=== PATIENT | female | born 1980 | race African-American/Black ===

== ENCOUNTER 2017-02-11 22:12 | Emergency (ER) | payer OTHER ==
[2017-02-11 23:12] LABS: PLATELET COUNT 229 x10^3mcL (130-400); RED CELL DISTRIBUTION WIDTH 14.1 % (11.5-14.5)
[2017-02-11 23:23] LABS: CALCIUM 9.1 mg/dL (8.5-10.1); CHLORIDE SERUM 105 mmol/L (98-107); CREATININE SERUM 0.9 mg/dL (0.6-1.0); GFR1 > 60 mL/min; GLUCOSE SERUM 107 mg/dL (74-106); SODIUM SERUM 141 mmol/L (136-145)
[2017-02-11 23:26] LABS: microscopic required? NO
[2017-02-11 23:27] LABS: ALBUMIN 4.2 g/dL (3.4-5.0); ALKALINE PHOSPHATASE 72 U/L (46-116); ALT/SGPT 24 U/L (14-59); AMYLASE 53 U/L (25-115); AST/SGOT 11 U/L (15-37); BILIRUBIN TOTAL 0.45 mg/dL (0.20-1.00); LIPASE 243 IU/L (73-393); TOTAL PROTEIN, SERUM 7.6 g/dL (6.4-8.2)
[2017-02-11 23:32] LABS: urine erythrocyte NEGATIVE (NEGATIVE)
[2017-02-12 03:54] VITALS: BP 129/88
== END 2017-02-12 03:50 | disposition home or self-care (01) ==
LOC: ED 22:12
PROVIDERS: Emergency Medicine
DX: N83.201 Unspecified ovarian cyst, right side (principal); G43.809 Other migraine, not intractable, without status migrainosus; Z90.710 Acquired absence of both cervix and uterus; Z90.721 Acquired absence of ovaries, unilateral
CPT/HCPCS: J2270; J3010; Q0162

== ENCOUNTER 2017-02-17 19:19 | Emergency (ER) | payer OTHER ==
[2017-02-17 21:29] VITALS: BP 131/88
== END 2017-02-17 21:29 | disposition home or self-care (01) ==
LOC: ED 19:19
DX: G43.909 Migraine, unspecified, not intractable, without status migrainosus (principal); Z88.5 Allergy status to narcotic agent; Z88.8 Allergy status to other drugs, medicaments and biological substances
CPT/HCPCS: J0780; J1200; J1885; J7030

== ENCOUNTER 2017-05-16 14:11 | Emergency (ER) | payer OTHER ==
[~2017-05-16] VITALS: Ht 160 cm; Wt 51.2 kg
[2017-05-16 14:54] LABS: CALCIUM 9.1 mg/dL (8.5-10.1); CARBON DIOXIDE 20.7 mmol/L (21-32); CHLORIDE SERUM 108 mmol/L (98-107); GFR1 > 60 mL/min; GLUCOSE SERUM 81 mg/dL (74-106); POTASSIUM SERUM 3.4 mmol/L (3.5-5.1); SODIUM SERUM 146 mmol/L (136-145)
[2017-05-16 14:55] LABS: BASOPHIL % 0.6 % (0-2); PLATELET COUNT 175 x10^3mcL (130-400); RED CELL DISTRIBUTION WIDTH 13.9 % (11.5-14.5)
[2017-05-16 15:21] LABS: ALBUMIN 4.4 g/dL (3.4-5.0); ALKALINE PHOSPHATASE 60 U/L (46-116); ALT/SGPT 19 U/L (14-59); AST/SGOT 14 U/L (15-37); BILIRUBIN TOTAL 1.76 mg/dL (0.20-1.00); LIPASE 110 IU/L (73-393); TOTAL PROTEIN, SERUM 7.8 g/dL (6.4-8.2)
[2017-05-16 16:04] VITALS: BP 134/85
== END 2017-05-16 16:04 | disposition home or self-care (01) ==
LOC: ED 14:11
PROVIDERS: Emergency Medicine
DX: K29.00 Acute gastritis without bleeding (principal); E86.0 Dehydration; F17.200 Nicotine dependence, unspecified, uncomplicated; G43.909 Migraine, unspecified, not intractable, without status migrainosus; Z90.89 Acquired absence of other organs; Z79.899 Other long term (current) drug therapy; Z88.5 Allergy status to narcotic agent; Z88.8 Allergy status to other drugs, medicaments and biological substances
CPT/HCPCS: J2060; J2405; J3490; J7030; Q0092

== ENCOUNTER 2019-10-15 03:13 | Inpatient (IN) | payer OTHER, MEDICAID ==
[~2019-10-15] VITALS: Ht 160 cm; Wt 59.1 kg
[2019-10-15 03:20] VITALS: Ht 160 cm; Wt 59.1 kg
[2019-10-15 04:22] LABS: CALCIUM 8.7 mg/dL (8.5-10.1); CARBON DIOXIDE 25.4 mmol/L (21-32); CHLORIDE SERUM 105 mmol/L (98-107); GFR1 > 60 mL/min; GLUCOSE SERUM 91 mg/dL (74-106); POTASSIUM SERUM 4.8 mmol/L (3.5-5.1); SODIUM SERUM 140 mmol/L (136-145)
[2019-10-15 04:27] LABS: ALKALINE PHOSPHATASE 94 U/L (46-116); ALT/SGPT 18 U/L (14-59); AST/SGOT 28 U/L (15-37); BILIRUBIN TOTAL 0.8 mg/dL (0.20-1.00)
[2019-10-15 04:28] LABS: TOTAL PROTEIN, SERUM 8.3 g/dL (6.4-8.2)
[2019-10-15 04:31] LABS: BASOPHIL % 0.8 % (0-2); PLATELET COUNT 272 x10^3mcL (130-400); RED CELL DISTRIBUTION WIDTH 13.3 % (11.5-14.5)
[2019-10-15] MEDS ORDERED: PLA75 (06:14)
[2019-10-15] MEDS ORDERED: ASPIR 8181 MG (06:17)
[2019-10-15] MEDS ORDERED: SIMVASTATIN10 M1 (06:17)
[2019-10-15 06:48] LABS: microscopic required? NO
[2019-10-15 06:49] VITALS: BP 141/96
[2019-10-15 07:43] VITALS: BP 141/96
[2019-10-15 07:53] LABS: UA SPECIFIC GRAVITY >=1.030 (1.005-1.035); urine erythrocyte NEGATIVE (NEGATIVE)
[2019-10-15 08:16] LABS: AMPHETAMINE QUAL UR NONE DETECTED (See below)
[2019-10-15 09:02] VITALS: BP 130/88
[2019-10-15 17:19] VITALS: BP 134/83
[2019-10-15 20:58] VITALS: BP 101/65
[2019-10-16 05:28] VITALS: BP 117/77
[2019-10-16 06:11] LABS: BASOPHIL % 0.7 % (0-2); PLATELET COUNT 215 x10^3mcL (130-400); RED CELL DISTRIBUTION WIDTH 13.3 % (11.5-14.5)
[2019-10-16 06:39] LABS: CALCIUM 7.8 mg/dL (8.5-10.1); CARBON DIOXIDE 25.3 mmol/L (21-32); CHLORIDE SERUM 108 mmol/L (98-107); GFR1 > 60 mL/min; GLUCOSE SERUM 83 mg/dL (74-106); POTASSIUM SERUM 3.9 mmol/L (3.5-5.1); SODIUM SERUM 142 mmol/L (136-145)
[2019-10-16 07:55] VITALS: BP 110/78
[2019-10-16 08:00] VITALS: BP 132/76
[2019-10-16 16:47] VITALS: BP 131/84
[2019-10-16 20:30] VITALS: BP 117/78
[2019-10-17 05:25] VITALS: BP 104/66
[2019-10-17 06:35] LABS: BASOPHIL % 0.6 % (0-2); PLATELET COUNT 204 x10^3mcL (130-400); RED CELL DISTRIBUTION WIDTH 13.3 % (11.5-14.5)
[2019-10-17 06:58] LABS: CALCIUM 7.6 mg/dL (8.5-10.1); CARBON DIOXIDE 21.9 mmol/L (21-32); CHLORIDE SERUM 108 mmol/L (98-107); GFR1 > 60 mL/min; GLUCOSE SERUM 88 mg/dL (74-106); POTASSIUM SERUM 3.7 mmol/L (3.5-5.1); SODIUM SERUM 141 mmol/L (136-145)
[2019-10-17 07:53] VITALS: BP 117/74
[2019-10-17 16:06] VITALS: BP 123/84
[2019-10-17 20:10] VITALS: BP 115/62
[2019-10-18 05:07] VITALS: BP 96/54
[2019-10-18 07:38] LABS: BASOPHIL % 0.5 % (0-2); PLATELET COUNT 194 x10^3mcL (130-400); RED CELL DISTRIBUTION WIDTH 13.2 % (11.5-14.5)
[2019-10-18 07:40] VITALS: BP 125/84
[2019-10-18 08:21] LABS: CALCIUM 8.1 mg/dL (8.5-10.1); CARBON DIOXIDE 24.5 mmol/L (21-32); CHLORIDE SERUM 105 mmol/L (98-107); CREATININE SERUM 0.7 mg/dL (0.6-1.0); GFR1 > 60 mL/min; GLUCOSE SERUM 91 mg/dL (74-106); POTASSIUM SERUM 3.4 mmol/L (3.5-5.1); SODIUM SERUM 139 mmol/L (136-145)
[2019-10-18] MEDS ORDERED: CIPRO500 MG PO (11:51)
[2019-10-18] MEDS ORDERED: FLO4 PO (11:51)
[2019-10-18 12:10] VITALS: BP 125/84
== END 2019-10-18 12:50 | disposition home or self-care (01) | DRG 690 ==
LOC: ED 03:13 → MU 05:29
PROVIDERS: Emergency Medicine; General Practice; ADMIT Internal Medicine
DX: N10 Acute pyelonephritis (principal); G43.909 Migraine, unspecified, not intractable, without status migrainosus; N20.0 Calculus of kidney; Z79.82 Long term (current) use of aspirin; Z79.01 Long term (current) use of anticoagulants; Z86.73 Personal history of transient ischemic attack (TIA), and cerebral infarction without residual deficits; Z88.8 Allergy status to other drugs, medicaments and biological substances; Z88.5 Allergy status to narcotic agent; Z88.6 Allergy status to analgesic agent; Z90.710 Acquired absence of both cervix and uterus; Z90.711 Acquired absence of uterus with remaining cervical stump
CPT/HCPCS: G0378; J0696; J1170; J1200; J1940; J2270; J2405; J2550; J7030; Q0163

== ENCOUNTER 2020-02-13 19:03 | Emergency (ER) | payer OTHER, MEDICAID ==
[~2020-02-13] VITALS: Ht 165.1 cm; Wt 73.9 kg
[~2020-02-13 19:03] MED LIST: ASPIR 8181 MG; CIPRO500 MG PO; FLO4 PO; PLA75; SIMVASTATIN10 M1
[2020-02-13 19:21] VITALS: Ht 165.1 cm; Wt 73.9 kg
[2020-02-13 20:49] LABS: BASOPHIL % 0.9 % (0-2); PLATELET COUNT 216 x10^3mcL (130-400); RED CELL DISTRIBUTION WIDTH 14.3 % (11.5-14.5)
[2020-02-13 20:58] LABS: CALCIUM 8.8 mg/dL (8.5-10.1); CARBON DIOXIDE 29.5 mmol/L (21-32); CHLORIDE SERUM 106 mmol/L (98-107); GFR1 > 60 mL/min; GLUCOSE SERUM 90 mg/dL (74-106); POTASSIUM SERUM 3.7 mmol/L (3.5-5.1); SODIUM SERUM 141 mmol/L (136-145)
[2020-02-13 21:03] LABS: ALBUMIN 3.5 g/dL (3.4-5.0); ALKALINE PHOSPHATASE 80 U/L (46-116); ALT/SGPT 17 U/L (14-59); AST/SGOT 12 U/L (15-37); BILIRUBIN TOTAL 0.3 mg/dL (0.20-1.00); TOTAL PROTEIN, SERUM 6.9 g/dL (6.4-8.2)
[2020-02-13 21:54] VITALS: BP 115/83
== END 2020-02-13 21:54 | disposition home or self-care (01) ==
LOC: ED 19:03
PROVIDERS: Emergency Medicine
DX: G43.909 Migraine, unspecified, not intractable, without status migrainosus (principal); R20.2 Paresthesia of skin; Z88.6 Allergy status to analgesic agent; Z88.8 Allergy status to other drugs, medicaments and biological substances; Z88.5 Allergy status to narcotic agent
CPT/HCPCS: J1200; J2270; J2405; J7030

== ENCOUNTER 2020-03-05 22:44 | Emergency (ER) | payer OTHER, MEDICAID ==
[~2020-03-05] VITALS: Ht 157.5 cm; Wt 61.7 kg
[2020-03-05 22:54] VITALS: Ht 157.5 cm; Wt 61.7 kg
[2020-03-06 00:13] LABS: CARBON DIOXIDE 25.6 mmol/L (21-32); CHLORIDE SERUM 104 mmol/L (98-107); GFR1 > 60 mL/min; GLUCOSE SERUM 89 mg/dL (74-106); POTASSIUM SERUM 3.8 mmol/L (3.5-5.1); SODIUM SERUM 141 mmol/L (136-145)
[2020-03-06 00:18] LABS: ALBUMIN 4.1 g/dL (3.4-5.0); ALKALINE PHOSPHATASE 98 U/L (46-116); ALT/SGPT 37 U/L (14-59); AST/SGOT 18 U/L (15-37); BILIRUBIN TOTAL 0.5 mg/dL (0.20-1.00)
[2020-03-06 00:20] LABS: PLATELET COUNT 284 x10^3mcL (130-400); RED CELL DISTRIBUTION WIDTH 14.8 % (11.5-14.5)
[2020-03-06 01:39] VITALS: BP 107/76
== END 2020-03-06 01:30 | disposition home or self-care (01) ==
LOC: ED 22:44
PROVIDERS: Emergency Medicine
DX: R00.2 Palpitations (principal); Z98.890 Other specified postprocedural states; Z88.5 Allergy status to narcotic agent; Z88.6 Allergy status to analgesic agent
CPT/HCPCS: J7030